=== PATIENT | female | born 1960 | race Caucasian/White ===

== ENCOUNTER 2021-01-21 12:46 | Inpatient (IN) ==
[2021-01-21] MEDS ORDERED: ALBUT/IPRATROP 3MG/0.5MG NEB 3 ML VIAL NEB STA (14:19)
--- NOTE | 2021-01-21 14:59 | Emergency Department Note ---
History of Present Illness General Chief complaint: Referred by Doctor Stated complaint: BRONCHITIS, XRAY REQUEST FROM DOCTOR Time Seen by Provider: 01/21/21 13:54 Source: patient Mode of arrival: ambulatory Limitations: no limitations History of Present Illness Provider complaint: cough Onset (ago): day(s) 6 Relieved By: + none Exacerbated By: + movement Treatments prior to arrival: other This is a 60-year-old female presents emergency department after contacting her PCP and med instructed to come here for an x-ray. Patient states last she noticed she had an evolving cough. States she had frequent coughing over the weekend, typically productive of green sputum. Patient states she did intermittently have some mild sense of being short of breath or more easily winded. States some subjective fevers, none measured at home. Denies nausea, vomiting, abdominal pain, or diarrhea. Denies any sick contacts. Patient states she is a smoker and does have a known diagnosis with COPD. She does have 2 inhalers she takes at home, no home oxygen. Patient was found to be hypoxic on arrival and was placed on oxygen via nasal cannula. Patient states she has previously had pneumonia, states this does not feel similar. She does have a history of bronchitis. Patient denies any history of heart problems. Patient 80% on RA on my initial evaluation, pt placed back on oxygen via NC and sats improved. Pt seen during a time of high acuity and national emergency pandemic while wearing PPE. Home Medications Medication Instructions Recorded Confirmed Type meloxicam 7.5 mg tablet (Mobic) 7.5 mg PO DAILY #30 tab 08/11/20 01/21/21 Rx albuterol sulfate 90 mcg/actuation 2 puff INH Q6H PRN #18 gm 08/12/20 01/21/21 Rx aerosol inhaler (Ventolin HFA) citalopram 40 mg tablet 40 mg PO DAILY #30 tab 08/12/20 01/21/21 Rx ergocalciferol (vitamin D2) 1,250 50,000 unit PO WEEKLY #8 cap 08/12/20 01/21/21 Rx mcg (50,000 unit) capsule famotidine 20 mg tablet 20 mg PO BID #60 tab 08/12/20 01/21/21 Rx hydroxyzine HCl 10 mg tablet 20 mg PO BID PRN #120 tab 08/12/20 01/21/21 Rx levothyroxine 88 mcg capsule 88 mcg PO DAILY #30 tabs 08/12/20 01/21/21 Rx mometasone-formoterol HFA 100 2 puff INH BID #13 gm 08/12/20 01/21/21 Rx mcg-5 mcg/actuation aerosol inhaler (Dulera) pravastatin 40 mg tablet 40 mg PO DAILY #30 tab 08/12/20 Rx Oxygen Home #1 ea 01/23/21 Rx amlodipine 5 mg tablet (Norvasc) 5 mg PO QAM #30 tab 01/23/21 Rx doxycycline hyclate 100 mg capsule 100 mg PO BID 6 Days #12 cap 01/23/21 Rx hydrocodone 5 mg-acetaminophen 325 1 tab PO Q6H PRN #10 tab 01/23/21 Rx mg tablet nicotine 21 mg/24 hr daily 21 mg TRANSDERMAL QAM #28 ea 01/23/21 Rx transdermal patch (Nicoderm CQ) nystatin 100,000 unit/mL oral 5 ml PO QID 7 Days #200 ml 01/23/21 Rx suspension prednisone 10 mg tablet 10 mg PO .daily as directed #30 tab 01/23/21 Rx Allergies Allergy/AdvReac Type Severity Reaction Status Date / Time amoxicillin Allergy Unknown Unknown Verified 01/22/21 13:54 aspirin Allergy Unknown Unknown Verified 01/22/21 13:54 clarithromycin [From Biaxin] Allergy Unknown Unknown Verified 01/22/21 13:55 Past Med/Surg History Medical History Anxiety Depression Hyperlipidemia Hypothyroidism Family History Aunt Breast cancer Brother Myocardial infarction Mother Pancreatic cancer Father Lung cancer Denies family history of Ovarian cancer Prostate cancer Colorectal cancer Social History Smoking Status: Current every day smoker Tobacco Type: Cigarettes Age Started Using Tobacco: 14; packs per day: 1; Second Hand Exposure: No; Hx Alcohol Use: No Hx Substance Use: No Preferred Language: Zambian Communication Ability: Effective Visual Impairment: No Limitations Hearing Ability: Normal Promotions Team Leader Required: No Beliefs That Will Affect Care: None marital status: Current Living Situation: Significant Other current occupational status: unemployed and disabled How many Children do You have: 2 Feels Safe at Home: Yes Childhood Exposure to Second-Hand Smoke: Yes caffeine: No Dental Care, Regularly: No Physical Activity Frequency: Does not Exercise Seatbelt Use: always Sunscreen Use: No Assistive Devices: Glasses and Oxygen - Continuous Review of Systems A total of 10 systems reviewed and were otherwise negative All systems reviewed & are unremarkable except as noted in HPI & below Physical Exam Vital Signs Vital Signs - 24 hr 01/21/21 12:51 01/21/21 14:49 01/21/21 15:00 Temperature 37.1 C Temperature Source Oral Pulse Rate 75 66 Pulse Rate [Left Finger] 65 Pulse Rate from SpO2 Sensor 66 Respiratory Rate 22 20 23 Respiratory Effort / Characteristics Spontaneous Blood Pressure 188/95 H 170/85 H Blood Pressure Mean 126 113 Pulse Oximetry 87 L 94 90 Oxygen Delivery Method Room Air Nasal Cannula Oxygen Flow Rate 2 Sepsis Recent Fever Within 48 Hours No Sepsis New/Unexplained Change in Mental Status N/A Sepsis Action Taken by Nursing No Action Required 01/21/21 15:04 Temperature Temperature Source Pulse Rate Pulse Rate [Left Finger] Pulse Rate from SpO2 Sensor Respiratory Rate Respiratory Effort / Characteristics Blood Pressure Blood Pressure Mean Pulse Oximetry 91 Oxygen Delivery Method Nasal Cannula Oxygen Flow Rate 4 Sepsis Recent Fever Within 48 Hours Sepsis New/Unexplained Change in Mental Status Sepsis Action Taken by Nursing GENERAL: alert, well appearing, well nourished, no distress, non-toxic EYE EXAM: normal conjunctiva, PERRL and EOM's grossly intact OROPHARYNX: no exudate, no erythema, lips, buccal mucosa, and tongue normal and mucous membranes are moist NECK: supple, no nuchal rigidity, no adenopathy, non-tender LUNGS: Clear to auscultation. Normal chest wall mechanics, no w/r/r HEART: no murmurs, S1 normal and S2 normal ABDOMEN: abdomen soft, non-tender, normo-active bowel sounds, no masses, no rebound or guarding. BACK: Back is symmetrical on inspection and there is no deformity, no midline tenderness, no CVA tenderness. SKIN: no rashes and no bruising UPPER EXTREMITIES: upper extremities are grossly normal. FROM, nml pulses b/l. LOWER EXTREMITIES: No pitting edema. FROM, nml pulses b/l. NEURO EXAM: Normal sensorium, cranial nerves II-XII grossly intact, normal speech, no gross weakness of arms, no gross weakness of legs. No pronator drift. Finger to nose intact. Gross sensation intact. Course Course 1640: Pt updated on results. 165: Discussed with Dr. Fitzpatrick. Administered Medications Discontinued Medications Acetaminophen (Acetaminophen 325 Mg Tab) 650 mg PO Q4H PRN PRN Reason: Pain or Fever Stop: 02/20/21 20:34 Last Admin: 01/22/21 23:33 Dose: 650 mg Documented by: [id number] Admin: 01/22/21 06:15 Dose: 650 mg Documented by: [id number] Hydrocodone Bitart/Acetaminophen (Hydrocodone/Acetamophen 5/325mg Tab) 1 tab PO Q6H PRN PRN Reason: Pain Stop: 02/05/21 13:39 Last Admin: 01/23/21 08:05 Dose: 1 tab Documented by: [id number] Admin: 01/22/21 19:27 Dose: 1 tab Documented by: [id number] Albuterol (Albut/Ipratrop 3mg/0.5mg Neb 3 Ml Vial) 3 ml NEB NOW STA Stop: 01/21/21 14:20 Last Admin: 01/21/21 14:48 Dose: 3 ml Documented by: [id number] Albuterol (Albut/Ipratrop 3mg/0.5mg Neb 3 Ml Vial) 3 ml NEB QIDR MARK Stop: 02/20/21 20:34 Last Admin: 01/23/21 14:24 Dose: 3 ml Documented by: [id number] Admin: 01/23/21 10:30 Dose: 3 ml Documented by: [id number] Admin: 01/23/21 07:06 Dose: 3 ml Documented by: [id number] Admin: 01/22/21 19:10 Dose: 3 ml Documented by: [id number] Admin: 01/22/21 15:36 Dose: 3 ml Documented by: [id number] Admin: 01/22/21 11:10 Dose: 3 ml Documented by: [id number] Admin: 01/22/21 07:13 Dose: 3 ml Documented by: [id number] Admin: 01/21/21 21:29 Dose: 3 ml Documented by: [id number] Amlodipine Besylate (Amlodipine Besylate 5 Mg Tab) 5 mg PO NOW ONE Stop: 01/21/21 18:50 Last Admin: 01/21/21 18:55 Dose: 5 mg Documented by: [id number] Amlodipine Besylate (Amlodipine Besylate 5 Mg Tab) 5 mg PO QAM MARK Stop: 02/20/21 20:34 Last Admin: 01/23/21 08:07 Dose: 5 mg Documented by: [id number] Admin: 01/22/21 08:22 Dose: 5 mg Documented by: [id number] Admin: 01/21/21 22:01 Dose: 5 mg Documented by: [id number] Citalopram Hydrobromide (Citalopram 40 Mg Tab) 40 mg PO DAILY MARK Stop: 02/21/21 08:59 Last Admin: 01/23/21 08:06 Dose: 40 mg Documented by: [id number] Admin: 01/22/21 08:21 Dose: 40 mg Documented by: [id number] Doxycycline Hyclate (Doxycycline Hyclate 100 Mg Cap) 100 mg PO BID MARK Stop: 01/26/21 20:59 Last Admin: 01/23/21 08:06 Dose: 100 mg Documented by: [id number] Admin: 01/22/21 19:30 Dose: 100 mg Documented by: [id number] Enoxaparin Sodium (Enoxaparin Inj 40 Mg/0.4 Ml Syr) 40 mg SQ Q24H MARK Stop: 02/20/21 20:59 Last Admin: 01/22/21 20:02 Dose: 40 mg Documented by: [id number] Admin: 01/21/21 22:01 Dose: 40 mg Documented by: [id number] Famotidine (Famotidine 20 Mg Tab) 20 mg PO BID MARK Stop: 02/20/21 20:59 Last Admin: 01/23/21 08:06 Dose: 20 mg Documented by: [id number] Admin: 01/22/21 19:30 Dose: 20 mg Documented by: [id number] Admin: 01/22/21 08:21 Dose: 20 mg Documented by: [id number] Admin: 01/21/21 22:00 Dose: 20 mg Documented by: [id number] Fluticasone/Vilanterol (Fluticasone/Vilanterol 100/25mcg 14 Puffs/Inhaler) 1 puffs INH DAILY MARK Stop: 02/21/21 08:59 Last Admin: 01/23/21 08:08 Dose: 1 puffs Documented by: [id number] Admin: 01/22/21 08:22 Dose: 1 puffs Documented by: [id number] Guaifenesin (Guaifenesin 600 Mg Tabcr) 1,200 mg PO Q12 MARK Stop: 02/21/21 08:59 Last Admin: 01/23/21 08:07 Dose: 1,200 mg Documented by: [id number] Admin: 01/22/21 19:31 Dose: 1,200 mg Documented by: [id number] Admin: 01/22/21 10:20 Dose: 1,200 mg Documented by: [id number] Hydralazine HCl (Hydralazine Hcl 20 Mg/Ml Vial) 5 mg IV NOW ONE Stop: 01/21/21 17:52 Last Admin: 01/21/21 18:06 Dose: 5 mg Documented by: [id number] Hydralazine HCl (Hydralazine Hcl 20 Mg/Ml Vial) 10 mg IV NOW STA Stop: 01/21/21 18:50 Last Admin: 01/21/21 18:56 Dose: 10 mg Documented by: [id number] Hydroxyzine HCl (Hydroxyzine Hcl 10 Mg Tab) 20 mg PO BID PRN PRN Reason: anxiety Stop: 02/20/21 20:34 Last Admin: 01/23/21 08:38 Dose: 20 mg Documented by: [id number] Admin: 01/22/21 20:01 Dose: 20 mg Documented by: [id number] Levofloxacin/Dextrose (Levaquin/D5w) 750 mg in 150 mls @ 100 mls/hr IV NOW STA Stop: 01/21/21 18:00 Last Infusion: 01/21/21 18:08 Dose: 0 mls/hr Documented by: [id number] Admin: 01/21/21 16:38 Dose: 100 mls/hr Documented by: [id number] Methylprednisolone 60 mg/ (Syringe) 0.96 mls @ 1.5 mls/min IV Q8H MARK Stop: 02/21/21 09:59 Last Admin: 01/22/21 10:20 Dose: 1.5 mls/min Documented by: [id number] Methylprednisolone 60 mg/ (Syringe) 0.96 mls @ 1.5 mls/min IV BID MARK Stop: 02/21/21 20:59 Last Admin: 01/23/21 08:07 Dose: 1.5 mls/min Documented by: [id number] Admin: 01/22/21 20:01 Dose: 1.5 mls/min Documented by: [id number] Labetalol HCl (Labetalol Hcl Iv 5 Mg/Ml 20ml) 10 mg IV NOW STA Stop: 01/21/21 17:06 Last Admin: 01/21/21 17:15 Dose: 10 mg Documented by: [id number] Cosigned by: [id number] Levothyroxine Sodium (Levothyroxine Sodium 88 Mcg Tablet) 88 mcg PO DAILYBB MARK Stop: 02/21/21 06:29 Last Admin: 01/23/21 05:35 Dose: 88 mcg Documented by: [id number] Admin: 01/22/21 06:11 Dose: 88 mcg Documented by: [id number] Meloxicam (Meloxicam 7.5 Mg Tab) 7.5 mg PO DAILY MARK Stop: 02/21/21 08:59 Last Admin: 01/23/21 08:06 Dose: 7.5 mg Documented by: [id number] Admin: 01/22/21 08:22 Dose: 7.5 mg Documented by: [id number] Methylprednisolone (Methylprednisolone 125 Mg/2 Ml Vial) 60 mg IV NOW STA Stop: 01/21/21 16:32 Last Admin: 01/21/21 16:38 Dose: 60 mg Documented by: [id number] Methylprednisolone (Methylprednisolone 125 Mg/2 Ml Vial) 60 mg IV Q8H MARK Stop: 02/20/21 18:14 Last Admin: 01/22/21 02:58 Dose: 60 mg Documented by: [id number] Admin: 01/21/21 18:24 Dose: Not Given Documented by: [id number] Miscellaneous (Remove Nicoderm Patch) 1 ea N/A DAILY@0859 MARK Stop: 02/21/21 08:58 Last Admin: 01/23/21 08:08 Dose: 1 ea Documented by: [id number] Admin: 01/22/21 08:22 Dose: 1 ea Documented by: [id number] Nicotine (Nicotine 21 Mg/24 Hr Tdsy) 21 mg TD QAM MARK Stop: 02/20/21 20:34 Last Admin: 01/23/21 08:07 Dose: 21 mg Documented by: [id number] Admin: 01/22/21 08:21 Dose: 21 mg Documented by: [id number] Admin: 01/21/21 21:57 Dose: 21 mg Documented by: [id number] Nystatin (Nystatin Susp 500,000 U/5 Ml Udc) 5 ml PO QID MARK Stop: 02/01/21 16:59 Last Admin: 01/23/21 17:49 Dose: Not Given Documented by: [id number] Admin: 01/23/21 12:07 Dose: 5 ml Documented by: [id number] Admin: 01/23/21 08:07 Dose: 5 ml Documented by: [id number] Admin: 01/22/21 20:03 Dose: 5 ml Documented by: [id number] Admin: 01/22/21 16:08 Dose: 5 ml Documented by: [id number] Pravastatin Sodium (Pravastatin Sod 40 Mg Tab) 40 mg PO DAILY MARK Stop: 02/21/21 08:59 Last Admin: 01/23/21 08:06 Dose: 40 mg Documented by: [id number] Admin: 01/22/21 08:21 Dose: 40 mg Documented by: [id number] Medical Decision Making Differential Diagnosis Differential diagnoses includes but is not limited to pneumonia, bronchitis, COPD/Asthma exacerbation, pneumothorax, pulmonary embolism, congestive heart failure, acute coronary syndrome Medical Records Attestation: I reviewed the patient's medical records. Home Medications Current Medication List: was personally reviewed by me Laboratory Data Attestation: I reviewed the patient's lab results. Result diagrams: 01/23/21 05:28 01/23/21 05:28 Lab Results 01/21/21 01/21/21 01/21/21 Range/Units 14:44 14:44 14:44 WBC 8.59 (4.8-10.8) K/uL RBC 5.25 (4.2-5.4) M/uL Hgb 15.9 (12.0-16.0) g/dL Hct 48.6 H (37-47) % MCV 92.6 (80-100) fL MCH 30.3 (25-34) pg MCHC 32.7 (32-36) g/dL RDW Std Deviation 43.8 (36.4-46.3) fL RDW Coeff of Penny 12.9 (11.5-14.5) % Plt Count 231 (130-400) K/uL MPV 10.6 H (7.4-10.4) fL Immature Gran % (Auto) 0.2 % Neut % (Auto) 73.2 % Lymph % (Auto) 15.6 % [place] % (Auto) 10.0 % Eos % (Auto) 0.9 % Baso % (Auto) 0.1 % Neut # (Auto) 6.28 (1.4-6.5) K/uL Lymph # (Auto) 1.34 (1.2-3.4) K/uL [place] # (Auto) 0.86 H (0.11-0.59) K/uL Eos # (Auto) 0.08 (0-0.5) K/uL Baso # (Auto) 0.01 (0-0.2) K/uL Immature Gran # (Auto) 0.02 (0.00-0.02) K/uL D-Dimer 380 (0-500) ug/L FEU Sodium 140 (136-145) mmol/L Potassium 3.3 L (3.5-5.1) mmol/L Chloride 106 (98-107) mmol/L Carbon Dioxide 30 (21-32) mmol/L Anion Gap 4.0 (3-11) BUN 15 (7-18) mg/dl Creatinine 0.75 (0.6-1.2) mg/dl Est Cr Clr Drug Dosing 72.9 ml/min Est GFR ( Amer) 99.0 ml/min Est GFR (Non-Af Amer) 85.4 ml/min BUN/Creatinine Ratio 19.7 (10-20) Glucose 95 (70-99) mg/dl Calcium 9.5 (8.5-10.1) mg/dl Magnesium 2.1 (1.8-2.4) mg/dl Total Bilirubin 0.5 (0.2-1) mg/dl AST 12 L (15-37) U/L ALT 19 (12-78) U/L Alkaline Phosphatase 134 H (45-117) U/L Troponin I < 0.015 (0-0.045) ng/ml NT-Pro-B Natriuret Pep 2291 H (0-900) pg/ml Total Protein 7.6 (6.4-8.2) gm/dl Albumin 3.8 (3.4-5.0) gm/dl Globulin 3.8 (2.5-4.0) gm/dl Albumin/Globulin Ratio 1.0 (0.9-2) COVID-19 Eval Order SARS-CoV-2 (PCR) (Negative) 01/21/21 01/21/21 Range/Units 14:47 14:47 WBC (4.8-10.8) K/uL RBC (4.2-5.4) M/uL Hgb (12.0-16.0) g/dL Hct (37-47) % MCV (80-100) fL MCH (25-34) pg MCHC (32-36) g/dL RDW Std Deviation (36.4-46.3) fL RDW Coeff of Penny (11.5-14.5) % Plt Count (130-400) K/uL MPV (7.4-10.4) fL Immature Gran % (Auto) % Neut % (Auto) % Lymph % (Auto) % [place] % (Auto) % Eos % (Auto) % Baso % (Auto) % Neut # (Auto) (1.4-6.5) K/uL Lymph # (Auto) (1.2-3.4) K/uL [place] # (Auto) (0.11-0.59) K/uL Eos # (Auto) (0-0.5) K/uL Baso # (Auto) (0-0.2) K/uL Immature Gran # (Auto) (0.00-0.02) K/uL D-Dimer (0-500) ug/L FEU Sodium (136-145) mmol/L Potassium (3.5-5.1) mmol/L Chloride (98-107) mmol/L Carbon Dioxide (21-32) mmol/L Anion Gap (3-11) BUN (7-18) mg/dl Creatinine (0.6-1.2) mg/dl Est Cr Clr Drug Dosing ml/min Est GFR ( Amer) ml/min Est GFR (Non-Af Amer) ml/min BUN/Creatinine Ratio (10-20) Glucose (70-99) mg/dl Calcium (8.5-10.1) mg/dl Magnesium (1.8-2.4) mg/dl Total Bilirubin (0.2-1) mg/dl AST (15-37) U/L ALT (12-78) U/L Alkaline Phosphatase (45-117) U/L Troponin I (0-0.045) ng/ml NT-Pro-B Natriuret Pep (0-900) pg/ml Total Protein (6.4-8.2) gm/dl Albumin (3.4-5.0) gm/dl Globulin (2.5-4.0) gm/dl Albumin/Globulin Ratio (0.9-2) COVID-19 Eval Order Covid19 at [facility] SARS-CoV-2 (PCR) NEGATIVE (Negative) Imaging Data Radiologist's Impression: Chest X-Ray 01/21/21 14:19 XR chest 2V PA/lateral CLINICAL HISTORY: Cough, shortness of breath COMPARISON STUDY: 09/25/2014 FINDINGS: The heart is normal in size. The patient appears hyperinflated. There is mild interstitial thickening. There is no lobar consolidation. There were no significant pleural effusions[ IMPRESSION: Mild nonspecific interstitial thickening. No evidence of focal pulmonary consolidation ACT 112: Negative or not required by law. Electronically signed by: Manish Guzmán M.D. 01/21/2021 4:15 PM ECG Data Attestation: I personally reviewed and interpreted this ECG as follows: Indication: + SOB/dyspnea Rate (beats per minute): 66 Rhythm: + normal sinus ECG Intervals/blocks: + Normal QRS and + Normal QT ECG [place]: + Normal ECG ST segments: + Normal ST segments MDM Narrative This is a 60-year-old female presents emergency department complaining of increased shortness of breath of the last 5 days. Patient with a history of tobacco abuse and underlying COPD. On my initial evaluation patient just walked back from the bathroom and was 80% with a normal waveform on room air. Patient placed on oxygen and continued to require oxygen to maintain appropriate saturations despite nebulizer treatments and steroids. Patient's labs reassuring. Patient with mild elevation of her BNP of unclear etiology. No prior cardiac history although patient at risk given age and tobacco abuse. Patient also with underlying hypertension and hyperlipidemia. Patient covered with antibiotics for likely COPD exacerbation. Due to persistent need for oxygen and no prior use of home oxygen Case discussed with hospitalist for additional evaluation and management. No obvious pneumonia or pulmonary edema seen on chest x-ray. No evidence of bacteremia/sepsis. Patient remained hemodynamically stable in the emergency room. An order was placed for continuous cardiac monitoring. The monitor shows a rate of _80 with _normal sinus_ rhythm. Impression & Plan Dyspnea, Hypoxia, Acute exacerbation of chronic obstructive pulmonary disease (COPD) Discharge Plan Visit Data Chief Complaint: Referred by Doctor Stated Complaint: BRONCHITIS, XRAY REQUEST FROM DOCTOR ED Provider: Paola Stiles Discharge Problem: Dyspnea, Hypoxia, Acute exacerbation of chronic obstructive pulmonary disease (COPD) Patient Disposition: Admitted As Inpatient Discharge Instructions Interventions: ED Discharge Assessment Last Done: 01/21/21 20:27 Discharge Problem: Dyspnea Qualifiers: Dyspnea type: unspecified Qualified Code(s): R06.00 - Dyspnea, unspecified
[2021-01-21 15:01] LABS: Basophils # (auto) 0.01 K/uL (0-0.2); Basophils % (auto) 0.1 %; Eosinophils # (auto) 0.08 K/uL (0-0.5); Eosinophils % (auto) 0.9 %; Hematocrit (blood only) 48.6 % (37-47); Hemoglobin 15.9 g/dL (12.0-16.0); Immature Granulocytes # (auto) 0.02 K/uL (0.00-0.02); Immature Granulocytes % (auto) 0.2 %; Lymphocytes # (auto) 1.34 K/uL (1.2-3.4); Lymphocytes % (auto) 15.6 %; Mean Corpuscular Hemoglobin 30.3 pg (25-34); Mean Corpuscular Hgb Conc 32.7 g/dL (32-36); Mean Corpuscular Volume 92.6 fL (80-100); Mean Platelet Volume 10.6 fL (7.4-10.4); Monocytes # (auto) 0.86 K/uL (0.11-0.59); Neutrophils # (auto) 6.28 K/uL (1.4-6.5); Neutrophils % (auto) 73.2 %; Platelet Count 231 K/uL (130-400); RDW Coefficient of Variation 12.9 % (11.5-14.5); RDW Standard Deviation 43.8 fL (36.4-46.3); Red Blood Count 5.25 M/uL (4.2-5.4); White Blood Count 8.59 K/uL (4.8-10.8)
[2021-01-21 15:16] LABS: D Dimer 380 ug/L FEU (0-500)
[2021-01-21 15:29] LABS: Alanine Aminotransferase 19 U/L (12-78); Albumin Level 3.8 gm/dl (3.4-5.0); Aspartate Aminotransferase 12 U/L (15-37); BUN Creatinine Ratio 19.7 (10-20); Blood Urea Nitrogen 15 mg/dl (7-18); Calcium 9.5 mg/dl (8.5-10.1); Carbon Dioxide 30 mmol/L (21-32); Chloride 106 mmol/L (98-107); Creatinine Clr Calc Pharmacy 72.9 ml/min; Est GFR (Non-African American) 85.4 ml/min; Glucose 95 mg/dl (70-99); Magnesium 2.1 mg/dl (1.8-2.4); Potassium 3.3 mmol/L (3.5-5.1); Sodium 140 mmol/L (136-145)
[2021-01-21 15:34] LABS: Alkaline Phosphatase 134 U/L (45-117); Bilirubin,Total 0.5 mg/dl (0.2-1); Globulin 3.8 gm/dl (2.5-4.0); NT Pro B Type Natriuretic Pept 2291 pg/ml (0-900); Total Protein 7.6 gm/dl (6.4-8.2); Troponin I < 0.015 ng/ml (0-0.045)
--- NOTE | 2021-01-21 16:16 | XRay Report ---
XR chest 2V PA/lateral CLINICAL HISTORY: Cough, shortness of breath COMPARISON STUDY: 09/25/2014 FINDINGS: The heart is normal in size. The patient appears hyperinflated. There is mild interstitial thickening. There is no lobar consolidation. There were no significant pleural effusions[ IMPRESSION: Mild nonspecific interstitial thickening. No evidence of focal pulmonary consolidation ACT 112: Negative or not required by law. Electronically signed by: Manish Guzmán M.D. 01/21/2021 4:15 PM
[2021-01-21] MEDS ORDERED: methylPREDNISolone 125 MG/2 ML VIAL IV STA (16:31)
[2021-01-21] MEDS ORDERED: levoFLOXacin/D5W 750 MG/150 ML BAG IV STA (16:31)
[2021-01-21] MEDS ORDERED: LABETALOL HCL IV 5 MG/ML 20ML IV STA (17:05)
[2021-01-21] MEDS ORDERED: hydrALAZINE HCL 20 MG/ML VIAL IV ONE (17:51)
--- NOTE | 2021-01-21 17:56 | History & Physical Report ---
Date of Service January 21, 2021 Assessment & Plan (1) COPD exacerbation: Plan: Patient has history of COPD and active tobacco use, likely has exacerbation with very little air movement on exam Admit to monitored bed Patient was given Solu-Medrol 60 mg x 1 dose, will continue every 8 hours Duo nebs 4 times daily I will hold further antibiotics for now, check sputum culture Patient will likely need home O2 evaluation prior to discharge Smoking cessation will need to be stressed, patient was agreeable to a nicotine patch for today (2) Hypothyroidism: Plan: Continue levothyroxine 88 mcg as ordered (3) Hyperlipidemia: Plan: Pravastatin 40 mg daily or pharmacy equivalent (4) Hypertension: Plan: Patient blood pressure is very elevated, was given IV hydralazine We will start amlodipine 5 mg p.o. daily, first dose now. Adjust further additional agents as necessary History of Present Illness Chief Complaint: Shortness of breath Primary Care Provider: Mir Feliciano MD This is a 58-year-old female with past medical history of COPD, active tobacco use that presents today complaining of shortness of breath. Patient is a decent historian. Patient tells me that her symptoms started approximately 6 days ago. This initially was some mild cough with white/green thick sputum. She had mild dyspnea on exertion which evolved to shortness of breath. She did have fevers but did not take her temperature. She tells me she still smokes approximately 1 pack a day. She denies other symptoms such as chest pain, diarrhea, constipation, or abdominal pain. Patient tells me that she called her primary care doctor on 01/19. After describing her symptoms, she was told to present to the emergency room as it was suspected she had bronchitis and required a chest x-ray. Patient did not come to the emergency room until 01/21 as she thought that she would improve over time which was not the case. On presentation to the emergency room, she was found to have a room air O2 sat of 80%. She was started on 3 L nasal cannula is now at 93%. At the time of my evaluation, she is in the low more comfortable on this. She does not appear to be any cardiopulmonary distress. She is hypertensive at 187/71 but she is afebrile. Allergies Allergy/AdvReac Type Severity Reaction Status Date / Time aspirin Allergy Unknown Verified 08/22/19 14:40 Home Medications Medication Instructions Recorded Confirmed Type meloxicam 7.5 mg tablet (Mobic) 7.5 mg PO DAILY #30 tab 08/11/20 01/21/21 Rx albuterol sulfate 90 mcg/actuation 2 puff INH Q6H PRN #18 gm 08/12/20 01/21/21 Rx aerosol inhaler (Ventolin HFA) citalopram 40 mg tablet 40 mg PO DAILY #30 tab 08/12/20 01/21/21 Rx ergocalciferol (vitamin D2) 1,250 50,000 unit PO WEEKLY #8 cap 08/12/20 01/21/21 Rx mcg (50,000 unit) capsule famotidine 20 mg tablet 20 mg PO BID #60 tab 08/12/20 01/21/21 Rx hydroxyzine HCl 10 mg tablet 20 mg PO BID PRN #120 tab 08/12/20 01/21/21 Rx levothyroxine 88 mcg capsule 88 mcg PO DAILY #30 tabs 08/12/20 01/21/21 Rx mometasone-formoterol HFA 100 2 puff INH BID #13 gm 08/12/20 01/21/21 Rx mcg-5 mcg/actuation aerosol inhaler (Dulera) pravastatin 40 mg tablet 40 mg PO DAILY #30 tab 08/12/20 Rx Past Med/Surg History Medical History Anxiety Depression Hyperlipidemia Hypothyroidism Family History Aunt Breast cancer Brother Myocardial infarction Mother Pancreatic cancer Father Lung cancer Denies family history of Ovarian cancer Prostate cancer Colorectal cancer Social History Smoking Status: Current every day smoker Tobacco Type: Cigarettes Age Started Using Tobacco: 14; packs per day: 1; Second Hand Exposure: Yes; Hx Alcohol Use: No Hx Substance Use: No Preferred Language: Danish Visual Impairment: No Limitations Hearing Ability: Normal marital status: Current Living Situation: Significant Other current occupational status: unemployed and disabled Feels Safe at Home: Yes Childhood Exposure to Second-Hand Smoke: Yes caffeine: No Dental Care, Regularly: No Physical Activity Frequency: Does not Exercise Seatbelt Use: always Sunscreen Use: No Assistive Devices: Denture - Upper, Denture - Lower and Glasses Review of Systems Constitutional: no fever, no chills, no weakness, no weight loss and no weight gain Eyes: as per Subjective / HPI Respiratory: + cough, + chest congestion, + change in sputum, + dyspnea on exertion, + sputum production and + wheezing; no dyspnea and no pain with cough Cardiovascular: no chest pain, no orthopnea, no palpitations, no lightheadedness and no edema Gastrointestinal: no abdominal pain, no nausea, no vomiting, no constipation and no diarrhea/loose stools Genitourinary: no dysuria, no difficulty urinating, no urinary frequency, no urinary hesitancy, no urinary urgency and no flank pain Musculoskeletal: no back pain, no neck pain, no joint pain, no stiffness and no myalgia Integumentary: no rash Neurologic: no gait abnormality, no unsteadiness, no falls and no generalized weakness Physical Exam Constitutional: cooperative; no acute distress Neck: trachea midline, no thyromegaly Respiratory: normal respiratory effort Auscultation: + breath sounds absent and + rhonchi (minimal); no crackles, no rales and no wheezes Cardiovascular: Rate/Rhythm: regular rate and regular rhythm Heart Sounds: normal S1 and normal S2 Gastrointestinal (Abdomen): Inspection/Auscultation: abdomen normal to inspection Percussion/Palpation: abdomen soft; abdomen nontender, no guarding, abdomen not rigid and no hepatosplenomegaly Skin: no rashes, warm and dry Results & Data Results & Data ([facility]) Vital Signs (Past 12 Hours) Vital Signs Temp Pulse Pulse Resp BP Pulse Ox 01/21/21 17:30 60 21 187/71 H 92 01/21/21 17:29 63 22 199/146 H 90 01/21/21 17:03 72 19 202/106 H 94 01/21/21 17:01 70 23 206/75 H 94 01/21/21 16:32 60 22 01/21/21 16:01 66 18 154/111 H 94 01/21/21 15:04 91 01/21/21 15:00 66 23 170/85 H 90 01/21/21 14:49 65 20 94 01/21/21 12:51 37.1 C 75 22 188/95 H 87 L Laboratory Results Laboratory Results WBC 8.59 K/uL (4.8-10.8) 01/21/21 14:44 RBC 5.25 M/uL (4.2-5.4) 01/21/21 14:44 Hgb 15.9 g/dL (12.0-16.0) 01/21/21 14:44 Hct 48.6 % (37-47) H 01/21/21 14:44 MCV 92.6 fL (80-100) 01/21/21 14:44 MCH 30.3 pg (25-34) 01/21/21 14:44 MCHC 32.7 g/dL (32-36) 01/21/21 14:44 RDW Std Deviation 43.8 fL (36.4-46.3) 01/21/21 14:44 RDW Coeff of Penny 12.9 % (11.5-14.5) 01/21/21 14:44 Plt Count 231 K/uL (130-400) 01/21/21 14:44 MPV 10.6 fL (7.4-10.4) H 01/21/21 14:44 Immature Gran % (Auto) 0.2 % 01/21/21 14:44 Neut % (Auto) 73.2 % 01/21/21 14:44 Lymph % (Auto) 15.6 % 01/21/21 14:44 [place] % (Auto) 10.0 % 01/21/21 14:44 Eos % (Auto) 0.9 % 01/21/21 14:44 Baso % (Auto) 0.1 % 01/21/21 14:44 Neut # (Auto) 6.28 K/uL (1.4-6.5) 01/21/21 14:44 Lymph # (Auto) 1.34 K/uL (1.2-3.4) 01/21/21 14:44 [place] # (Auto) 0.86 K/uL (0.11-0.59) H 01/21/21 14:44 Eos # (Auto) 0.08 K/uL (0-0.5) 01/21/21 14:44 Baso # (Auto) 0.01 K/uL (0-0.2) 01/21/21 14:44 Immature Gran # (Auto) 0.02 K/uL (0.00-0.02) 01/21/21 14:44 D-Dimer 380 ug/L FEU (0-500) 01/21/21 14:44 Sodium 140 mmol/L (136-145) 01/21/21 14:44 Potassium 3.3 mmol/L (3.5-5.1) L 01/21/21 14:44 Chloride 106 mmol/L (98-107) 01/21/21 14:44 Carbon Dioxide 30 mmol/L (21-32) 01/21/21 14:44 Anion Gap 4.0 (3-11) 01/21/21 14:44 BUN 15 mg/dl (7-18) 01/21/21 14:44 Creatinine 0.75 mg/dl (0.6-1.2) 01/21/21 14:44 Est Cr Clr Drug Dosing 72.9 ml/min 01/21/21 14:44 Est GFR ( Amer) 99.0 ml/min 01/21/21 14:44 Est GFR (Non-Af Amer) 85.4 ml/min 01/21/21 14:44 BUN/Creatinine Ratio 19.7 (10-20) 01/21/21 14:44 Glucose 95 mg/dl (70-99) 01/21/21 14:44 Calcium 9.5 mg/dl (8.5-10.1) 01/21/21 14:44 Magnesium 2.1 mg/dl (1.8-2.4) 01/21/21 14:44 Total Bilirubin 0.5 mg/dl (0.2-1) 01/21/21 14:44 AST 12 U/L (15-37) L 01/21/21 14:44 ALT 19 U/L (12-78) 01/21/21 14:44 Alkaline Phosphatase 134 U/L (45-117) H 01/21/21 14:44 Troponin I < 0.015 ng/ml (0-0.045) 01/21/21 14:44 NT-Pro-B Natriuret Pep 2291 pg/ml (0-900) H 01/21/21 14:44 Total Protein 7.6 gm/dl (6.4-8.2) 01/21/21 14:44 Albumin 3.8 gm/dl (3.4-5.0) 01/21/21 14:44 Globulin 3.8 gm/dl (2.5-4.0) 01/21/21 14:44 Albumin/Globulin Ratio 1.0 (0.9-2) 01/21/21 14:44 COVID-19 Eval Order Covid19 at [facility] 01/21/21 14:47 SARS-CoV-2 (PCR) NEGATIVE (Negative) 01/21/21 14:47 Impressions Chest X-Ray 01/21/21 14:19 XR chest 2V PA/lateral CLINICAL HISTORY: Cough, shortness of breath COMPARISON STUDY: 09/25/2014 FINDINGS: The heart is normal in size. The patient appears hyperinflated. There is mild interstitial thickening. There is no lobar consolidation. There were no significant pleural effusions[ IMPRESSION: Mild nonspecific interstitial thickening. No evidence of focal pulmonary consolidation ACT 112: Negative or not required by law. Electronically signed by: Manish Guzmán M.D. 01/21/2021 4:15 PM PG Care Time/CCT Total # of Minutes Spent Total Time Spent with Patient: Total time spent is greater than 50% in group sales coordinator rdination of care (as documented) at patient's floor/unit and/or counseling patient: Coding Level of Care Code 03664 Initial Inpt Care Lvl 3 Diagnoses Hypothyroidism E03.9 Hyperlipidemia E78.5 COPD exacerbation J44.1 Hypertension I10
[2021-01-21] MEDS: methylPREDNISolone 125 MG/2 ML VIAL IV SCH (18:24)
[2021-01-21] MEDS ORDERED: hydrALAZINE HCL 20 MG/ML VIAL IV STA (18:49)
[2021-01-21] MEDS ORDERED: amLODIPine BESYLATE 5 MG TAB PO ONE (18:49)
[2021-01-21] MEDS ORDERED: ONDANSETRON INJ 2 MG/ML 2 ML VIAL IV PRN (20:35)
[2021-01-21] MEDS ORDERED: ALBUTEROL HFA 8 GM INHALER INH PRN (20:35)
[2021-01-21] MEDS: ALBUT/IPRATROP 3MG/0.5MG NEB 3 ML VIAL NEB SCH (21:29)
[2021-01-21] MEDS: NICOTINE 21 MG/24 HR TDSY TD SCH (21:57)
[2021-01-21] MEDS: FAMOTIDINE 20 MG TAB PO SCH (22:00)
[2021-01-21] MEDS: ENOXAPARIN INJ 40 MG/0.4 ML SYR SQ SCH (22:01)
[2021-01-21] MEDS: amLODIPine BESYLATE 5 MG TAB PO SCH (22:01)
[2021-01-22] MEDS: methylPREDNISolone 125 MG/2 ML VIAL IV SCH (02:58)
[2021-01-22] MEDS: LEVOTHYROXINE SODIUM 88 MCG TABLET PO SCH (06:11)
[2021-01-22] MEDS: ACETAMINOPHEN 325 MG TAB PO PRN ×2 (06:15→23:33)
[2021-01-22] MEDS: ALBUT/IPRATROP 3MG/0.5MG NEB 3 ML VIAL NEB SCH ×4 (07:13→19:10)
[2021-01-22 07:16] LABS: Hematocrit (blood only) 52.3 % (37-47); Hemoglobin 17.3 g/dL (12.0-16.0); Immature Granulocytes # (auto) 0.02 K/uL (0.00-0.02); Immature Granulocytes % (auto) 0.2 %; Lymphocytes # (auto) 0.68 K/uL (1.2-3.4); Lymphocytes % (auto) 7.8 %; Mean Corpuscular Hemoglobin 30.1 pg (25-34); Mean Corpuscular Hgb Conc 33.1 g/dL (32-36); Mean Corpuscular Volume 91.1 fL (80-100); Mean Platelet Volume 10.3 fL (7.4-10.4); Monocytes # (auto) 0.09 K/uL (0.11-0.59); Neutrophils # (auto) 7.93 K/uL (1.4-6.5); Platelet Count 227 K/uL (130-400); RDW Coefficient of Variation 12.9 % (11.5-14.5); RDW Standard Deviation 42.7 fL (36.4-46.3); Red Blood Count 5.74 M/uL (4.2-5.4); White Blood Count 8.72 K/uL (4.8-10.8)
[2021-01-22 08:14] LABS: BUN Creatinine Ratio 21.5 (10-20); Calcium 9.3 mg/dl (8.5-10.1); Creatinine Clr Calc Pharmacy 77.4 ml/min; Est GFR (Non-African American) 89.8 ml/min; Potassium 3.5 mmol/L (3.5-5.1)
[2021-01-22] MEDS: PRAVASTATIN SOD 40 MG TAB PO SCH (08:21)
[2021-01-22] MEDS: CITALOPRAM 40 MG TAB PO SCH (08:21)
[2021-01-22] MEDS: FAMOTIDINE 20 MG TAB PO SCH ×2 (08:21→19:30)
[2021-01-22] MEDS: NICOTINE 21 MG/24 HR TDSY TD SCH (08:21)
[2021-01-22] MEDS: FLUTICASONE/VILANTEROL 100/25MCG 14 PUFFS/INHALER INH SCH (08:22)
[2021-01-22] MEDS: MELOXICAM 7.5 MG TAB PO SCH (08:22)
[2021-01-22] MEDS: amLODIPine BESYLATE 5 MG TAB PO SCH (08:22)
--- NOTE | 2021-01-22 08:33 | Electrocardiogram Report ---
Test Reason : Blood Pressure : / mmHG Vent. Rate : 066 BPM Atrial Rate : 066 BPM P-R Int : 150 ms QRS Dur : 076 ms QT Int : 456 ms P-R-T Axes : -13 042 068 degrees QTc Int : 478 ms Poor data quality, interpretation may be adversely affected Normal sinus rhythm Nonspecific T wave abnormality Anterior leads Abnormal ECG When compared with ECG of 25-SEP-2014 20:43, No significant change was found Confirmed by Tree Leal ([id number]) on 01/22/2021 8:33:16 AM Referred By: Mir Feliciano Confirmed By:Tree Leal
[2021-01-22] MEDS ORDERED: methylPREDNISolone 60 MG in SYRINGE 0 ML IV SCH (10:00)
[2021-01-22] MEDS: guaiFENesin 600 MG TABCR PO SCH ×2 (10:20→19:31)
--- NOTE | 2021-01-22 13:42 | Hospitalist Progress Note ---
Date of Service January 22, 2021 Assessment & Plan (1) COPD exacerbation: Plan: improving (2) Hypothyroidism: Plan: 08/2020 TSH was wnl (3) Hyperlipidemia: Plan: On Pravastatin 40 mg daily (4) Hypertension: Plan: Improved with addition of meds (5) Acute respiratory failure with hypoxia: Plan: 2nd COPD exacerbation May need formal 2-step at d/c -- has clubbing of nails suggesting potentially a chronic hypoxic state as well (6) Tobacco dependence: Plan: correctional substance abuse counselor to quit nicoderm (7) Candidiasis of mouth and esophagus: Plan: nystatin behzad 5cc qid swish/spit (8) DVT prophylaxis: Plan: lovenox 40 Plan: 1. add doxy 100mg BID while waiting for culture as sputum is purulent 2. lower steroids to BID; keep IV for now 3. add nystatin for thrush 4. flutter and incentive alexis Admission and Anticipated Discharge Date Admission Date: January 21, 2021 Subjective patient feeling better today cough still productive of green sputum Dyspnea and DOWNEY are improved still with NC O2 requirement eating ok no loss of taste/smell no headache no myalgias or arthralgias no fevers/chills Review of Systems Constitutional: no body aches, no weakness and no anorexia Respiratory: + cough; no hemoptysis Cardiovascular: no chest pain Gastrointestinal: no abdominal pain, no nausea and no vomiting Physical Exam Constitutional: no acute distress and no altered mental status ENMT: Mouth: + tongue abnormality (thrush plaques) and + dry oral mucous membranes Respiratory: Auscultation: + diminished lung sounds; no crackles and no wheezes Cardiovascular: RRR, no murmur, no edema Heart Sounds: normal S1 and normal S2 Vessels: no JVD Gastrointestinal (Abdomen): normal bowel sounds, soft, nontender, no hepatosplenomegaly Musculoskeletal: Extremities: + clubbing Psychiatric: A+Ox3, euthymic affect Results & Data Results & Data ([facility]) Vital Signs (Past 12 Hours) Vital Signs Temp Pulse Pulse Resp BP BP Pulse Ox 01/22/21 11:35 37.0 C 78 19 165/79 H 94 01/22/21 11:10 67 18 89 L 01/22/21 10:59 73 01/22/21 07:49 37.2 C 75 17 155/74 H 95 01/22/21 07:14 66 16 98 07/22/21 04:20 36.7 C 73 18 159/78 H 96 Laboratory Results Hb 17.3 Cr wnl sputum cx pending PG Care Time/CCT Total # of Minutes Spent Total Time Spent with Patient: Total time spent is greater than 50% in coordination of care (as documented) at patient's floor/unit and/or counseling patient: Coding Level of Care Code 32426 Subseq Hosp Care Lvl 3 Diagnoses COPD exacerbation J44.1 Hypothyroidism E03.9 Hyperlipidemia E78.5 Hypertension I10 Acute respiratory failure with hypoxia J96.01 Tobacco dependence F17.200 Candidiasis of mouth and esophagus B37.81; B37.0 DVT prophylaxis Z29.9
[2021-01-22] MEDS: NYSTATIN SUSP 500,000 U/5 ML UDC PO SCH ×2 (16:08→20:03)
[2021-01-22] MEDS: HYDROCODONE/ACETAMOPHEN 5/325MG TAB PO PRN (19:27)
[2021-01-22] MEDS: DOXYCYCLINE HYCLATE 100 MG CAP PO SCH (19:30)
[2021-01-22] MEDS: methylPREDNISolone 60 MG in SYRINGE 0 ML IV SCH (20:01)
[2021-01-22] MEDS: hydrOXYzine HCl 10 MG TAB PO PRN (20:01)
[2021-01-22] MEDS: ENOXAPARIN INJ 40 MG/0.4 ML SYR SQ SCH (20:02)
[2021-01-23] MEDS: LEVOTHYROXINE SODIUM 88 MCG TABLET PO SCH (05:35)
[2021-01-23 05:45] LABS: Hematocrit (blood only) 51.6 % (37-47)
[2021-01-23 06:10] LABS: BUN Creatinine Ratio 24.7 (10-20); Calcium 9.9 mg/dl (8.5-10.1); Creatinine Clr Calc Pharmacy 62.6 ml/min; Est GFR (African American) 80.5 ml/min; Est GFR (Non-African American) 69.5 ml/min
[2021-01-23] MEDS: ALBUT/IPRATROP 3MG/0.5MG NEB 3 ML VIAL NEB SCH ×3 (07:06→14:24)
[2021-01-23] MEDS: HYDROCODONE/ACETAMOPHEN 5/325MG TAB PO PRN (08:05)
[2021-01-23] MEDS: MELOXICAM 7.5 MG TAB PO SCH (08:06)
[2021-01-23] MEDS: FAMOTIDINE 20 MG TAB PO SCH (08:06)
[2021-01-23] MEDS: PRAVASTATIN SOD 40 MG TAB PO SCH (08:06)
[2021-01-23] MEDS: CITALOPRAM 40 MG TAB PO SCH (08:06)
[2021-01-23] MEDS: DOXYCYCLINE HYCLATE 100 MG CAP PO SCH (08:06)
[2021-01-23] MEDS: amLODIPine BESYLATE 5 MG TAB PO SCH (08:07)
[2021-01-23] MEDS: NYSTATIN SUSP 500,000 U/5 ML UDC PO SCH ×3 (08:07→17:49)
[2021-01-23] MEDS: NICOTINE 21 MG/24 HR TDSY TD SCH (08:07)
[2021-01-23] MEDS: guaiFENesin 600 MG TABCR PO SCH (08:07)
[2021-01-23] MEDS: methylPREDNISolone 60 MG in SYRINGE 0 ML IV SCH (08:07)
[2021-01-23] MEDS: FLUTICASONE/VILANTEROL 100/25MCG 14 PUFFS/INHALER INH SCH (08:08)
[2021-01-23] MEDS: hydrOXYzine HCl 10 MG TAB PO PRN (08:38)
--- NOTE | 2021-01-23 13:56 | Discharge Summary ---
Date of Service date of admission- January 21, 2021 date of discharge- January 23, 2021 Admission HPI Per Admitting Provider This is a 58-year-old female with past medical history of COPD, active tobacco use that presents today complaining of shortness of breath. Patient is a decent historian. Patient tells me that her symptoms started approximately 6 days ago. This initially was some mild cough with white/green thick sputum. She had mild dyspnea on exertion which evolved to shortness of breath. She did have fevers but did not take her temperature. She tells me she still smokes approximately 1 pack a day. She denies other symptoms such as chest pain, diarrhea, constipation, or abdominal pain. Patient tells me that she called her primary care doctor on 01/19. After describing her symptoms, she was told to present to the emergency room as it was suspected she had bronchitis and required a chest x-ray. Patient did not come to the emergency room until 01/21 as she thought that she would improve over time which was not the case. On presentation to the emergency room, she was found to have a room air O2 sat of 80%. She was started on 3 L nasal cannula is now at 93%. At the time of my evaluation, she is in the low more comfortable on this. She does not appear to be any cardiopulmonary distress. She is hypertensive at 187/71 but she is afebrile. Principal Diagnosis 1. acute hypoxic respiratory failure 2nd COPD exacerbation 2. COPD exacerbation Discharge Exam Constitutional no acute distress and no altered mental status ENMT Mouth: + tongue abnormality (thrush plaques) and + dry oral mucous membranes Respiratory Auscultation: + diminished lung sounds; no crackles and no wheezes Cardiovascular RRR, no murmur, no edema Heart Sounds: normal S1 and normal S2 Vessels: no JVD Gastrointestinal (Abdomen) normal bowel sounds, soft, nontender, no hepatosplenomegaly Musculoskeletal Extremities: + clubbing Psychiatric A+Ox3, euthymic affect Discharge Data Allergies Allergy/AdvReac Type Severity Reaction Status Date / Time amoxicillin Allergy Unknown Unknown Verified 01/28/21 14:57 aspirin Allergy Unknown Unknown Verified 01/28/21 14:57 clarithromycin [From Biaxin] Allergy Unknown Unknown Verified 01/28/21 14:57 Procedures Performed ambulatory oxygen test - 1 liter NC O2 at rest; 4 liters with activity/ambulation. Ordered Studies Chest X-Ray 01/21/21 14:19 XR chest 2V PA/lateral CLINICAL HISTORY: Cough, shortness of breath COMPARISON STUDY: 09/25/2014 FINDINGS: The heart is normal in size. The patient appears hyperinflated. There is mild interstitial thickening. There is no lobar consolidation. There were no significant pleural effusions[ IMPRESSION: Mild nonspecific interstitial thickening. No evidence of focal pulmonary consolidation ACT 112: Negative or not required by law. Electronically signed by: Manish Guzmán M.D. 01/21/2021 4:15 PM Hospital Course (1) COPD exacerbation: Treated in the customary fashion with IV steroids, antibiotics, neb treatments, O2, and supportive care. Pulmonary symptoms improved with such. Sputum culture was negative. She will complete a course of oral prednisone and doxycycline post-discharge. Unfortunately, despite improvement in her symptoms, she will need home O2 based on ambulatory O2 testing. 1 liter of NC O2 will be needed at rest and 4 liters of NC O2 will be utilized with activity/ambulation. She was encouraged to quit smoking and to speak with her PCP about ways to abstain from tobacco. (2) Hypothyroidism: 08/2020 TSH was wnl. Continue synthroid. (3) Hyperlipidemia: On Pravastatin 40 mg daily (4) Hypertension: Improved with addition of amlodipine 5mg daily. (5) Acute respiratory failure with hypoxia: 2nd COPD exacerbation. As noted above O2 was unable to be fully weaned. Will need 1 L NC O2 at rest and 4 L NC O2 with activity. (6) Tobacco dependence: counseled to quit. nicoderm prescribed at discharge. (7) Candidiasis of mouth and esophagus: nystatin behzad 5cc qid swish/spit (8) COPD (chronic obstructive pulmonary disease): with exacerbation. see above. Total Time Total Time Spent Total Time Spent (In Minutes): 40 Discharge Plan Discharge Items Patient Disposition: Home - Self-Care Reason For Visit: COPD EXACERBATION Discharge Diagnosis: 1. COPD exacerbation - resolving 2. Need for home oxygen - due to COPD Activity: As commented below Activity Comment: gradually increase your activities over the next 1-2 weeks Non-emergency contact: Primary Care Provider Call non-emergency contact if: you have any medication questions, your symptoms worsen, your pain is not controlled and you have a fever Follow-up/Referrals: Mir Feliciano III, MD [Primary Care Provider] - 01/28/21 3:00 pm (see Dr Feliciano within 1 week ) Diet: Heart Healthy Add Attending Provider Instructions: Ms Christian - You were treated for a "COPD Flare" at [facility]. This is when a virus or bacterium causes your COPD to temporarily worsen. It is treated with steroids, nebulizer breathing treatments, and antibiotics. You improved with the above. Unfortunately you need home oxygen due to your COPD. Recommendations - 1. prednisone taper - start 01/24/21. Take with food. 2. doxycycline antibiotic - 1 twice daily for 6 more days. Know that - * doxycycline can cause heartburn * it can also cause a rash if you go out and have sun exposure; thus, over the next week, use plenty of sunscreen and cover up 3. oxygen - * DO NOT SMOKE AT ANY TIME WHILE USING OXYGEN. THIS CAN CAUSE A FIRE. * 1 liter at rest/sleep * 4 liters with activity/ambulation, especially when you leave your home 4. for high blood pressure - * amlodipine 5mg once daily every day * common side effects - mild swelling of legs/ankles; constipation 5. for yeast infection in mouth - * nystatin swish/spit 4 times a day for 7 days 6. for moderate-severe back pain/joint pains - * hydrocodone-acetaminophen - 1 tablet every 6 hours as needed * DO NOT DRIVE if you take this medication * DO NOT DRINK ALCOHOL if you take this medication * can cause drowsiness and constipation * also note that it contains tylenol thus do not take extra [id number] tylenol while on this medication 7. tobacco - * please talk to Dr Feliciano about ways that you can quit * nicoderm patch 21mg/day; if you start smoking again please STOP the patch 8. for the next 3-5 days would use your albuterol inhaler 3-4 times each day for cough/congestion 9. if you have not received your COVID vaccine please do this a few weeks after you are done with your prednisone * the COVID delta strain is extremely contagious and if you are unvaccinated you can become severely sick from COVID * the Pfizer and Moderna vaccines protect you more so than the J & J vaccine Follow-up - see separate section Return to [facility] if - * you have fever over 100 degrees * you have worsening shortness of breath * you have severe diarrhea * you have chest pains * any other concerns Stay well! Dr Paulino Pending Studies at Discharge: No Stand-Alone Forms: [facility], Smoking Cessation Medications and DC Order Prescriptions: New (DME) Oxygen Home Liters Per Minute See Rx Instructions .ROUTE .MEDSUPPLY Qty: 1 RF: 0 amlodipine [Norvasc] 5 mg Tablet 5 mg PO QAM Qty: 30 RF: 5 hydrocodone-acetaminophen 5-325 mg Tablet 1 tab PO Q6H PRN (Reason: pain) Qty: 10 RF: 0 prednisone 10 mg tablet 10 mg PO .daily as directed Qty: 30 RF: 0 Continued albuterol sulfate [Ventolin HFA] 90 mcg/actuation HFA aerosol inhaler 2 puff INH Q6H PRN (Reason: shortness of breath or wheezing) Qty: 18 RF: 11 citalopram 40 mg tablet 40 mg PO DAILY Qty: 30 RF: 11 ergocalciferol (vitamin D2) 1,250 mcg (50,000 unit) capsule 50,000 unit PO WEEKLY Qty: 8 RF: 11 famotidine 20 mg tablet 20 mg PO BID Qty: 60 RF: 11 hydroxyzine HCl 10 mg tablet 20 mg PO BID PRN (Reason: anxiety) Qty: 120 RF: 11 levothyroxine 88 mcg capsule 88 mcg PO DAILY Qty: 30 RF: 11 Dulera 100-5 mcg/actuation HFA aerosol inhaler 2 puff INH BID Qty: 13 RF: 11 pravastatin 40 mg tablet 40 mg PO DAILY Qty: 30 RF: 11 meloxicam [Mobic] 7.5 mg tablet 7.5 mg PO DAILY Qty: 30 RF: 3 No Action nicotine 21 mg/24 hr patch 24 hour 1 patch transdermal Q24H Qty: 28 RF: 3 propranolol 20 mg tablet 20 mg PO BID Qty: 60 RF: 3 Discharge Orders: Discharge Order (Routine); Ordered 01/23/21 Ordered By: Umang Paulino Admission Data Admit Date/Time: 01/21/21 18:12 Attending Provider: Umang Paulino Admit Provider: Shaggy Fitzpatrick Primary Care Provider: Mir Feliciano III Other Interventions: Discharge Summary Assessment (RN) Last Done: 01/23/21 15:50 Coding Level of Care Code D/C DAY MANAGEMENT >30 MINS Diagnoses COPD exacerbation J44.1 Hypothyroidism E03.9 Hyperlipidemia E78.5 Hypertension I10 Acute respiratory failure with hypoxia J96.01 Tobacco dependence F17.200 Candidiasis of mouth and esophagus B37.81; B37.0 COPD (chronic obstructive pulmonary disease) J44.9
[2021-01-25] MEDS ORDERED: ERGOCALCIFEROL 50,000 UNITS 1250 MCG CAP PO SCH (09:00)
== END 2021-01-23 18:28 | disposition home or self-care (01) | DRG 190 ==
LOC: ED 12:46 → 2S 18:12 → SUATTDRO 18:12 → 2S 20:27